=== PATIENT | male | born 1980 | race African-American/Black ===

== ENCOUNTER 2021-12-18 09:35 | Emergency (ER) | payer BC ==
[~2021-12-18] VITALS: Ht 177.8 cm; Wt 82.0 kg
[2021-12-18] MEDS ORDERED: ONDANSETRON HCL 4MG/2ML INJ IV STA ×2 (11:51→13:24)
[2021-12-18] MEDS ORDERED: SODIUM CHLORIDE 0.9% 1,000 ML IV ONE ×2 (12:00→13:30)
[2021-12-18] MEDS ORDERED: KETOROLAC 15MG/ML VIAL IV ONE ×2 (12:00→13:30)
[2021-12-18 12:55] LABS: HEMATOCRIT. 44.3 % (42.0-52.0); HEMOGLOBIN. 14.9 g/dL (14.0-18.0); MEAN CORPUSCULAR HEMOGLOBIN 29.7 pg (28.0-32.0); MEAN CORPUSCULAR VOLUME 88.1 fL (80.0-94.0); MEAN PLATELET VOLUME 8.3 fl (7.4-10.4); PLATELET 252 x1000/uL (130-400); RED BLOOD CELL COUNT 5.02 mill/uL (4.7-6.1); RED CELL DISTRIBUTION WIDTH 13.2 % (11.6-14.6)
[2021-12-18 13:07] LABS: CHLORIDE 104 mEq/L (98-107)
[2021-12-18 13:10] LABS: PLATELET ESTIMATE NORMAL
[2021-12-18 13:15] LABS: CLARITY URINE CLOUDY (CLEAR); COLOR URINE YELLOW (YELLOW); KETONES URINE 4+ (NEGATIVE); LEUKOCYTE ESTERASE URINE NEGATIVE (NEGATIVE); NITRITE URINE NEGATIVE (NEGATIVE); OCCULT BLOOD URINE 3+ (NEGATIVE); PROTEIN URINE 1+ (NEGATIVE); SPECIFIC GRAVITY URINE 1.021 (1.005-1.030)
[2021-12-18 13:23] LABS: CREATINE KINASE 341 IU/L (39-308); ETHANOL BLOOD < 10 mg/dL
[2021-12-18 15:15] VITALS: BP 126/71
== END 2021-12-18 16:00 | disposition home or self-care (01) ==
LOC: ER 09:57
DX: N20.0 Calculus of kidney (principal); R42 Dizziness and giddiness
CPT/HCPCS: 36415; 70450; 71045; 74176; 80053; 80320; 81003; 82550; 83605; 83880; 84443; 84484; 85025; 93005; 96361; 96374; 96375; 99285; J1885; J2405; J7030; G0480